=== PATIENT | female | born 1960 | race Caucasian/White ===

== ENCOUNTER 2016-09-23 14:06 | Emergency (ER) | payer OTHER ==
[~2016-09-23] VITALS: Ht 167.6 cm; Wt 81.6 kg
[2016-09-23] MEDS ORDERED: TOPI100T PO (14:17)
[2016-09-23] MEDS ORDERED: HYDROCODONE/APAP 5-325MG TABLET PO ONE (14:45)
[2016-09-23] MEDS ORDERED: HYDROCODONE/APAP 5-325MG TABLET ONE (14:52)
--- NOTE | 2016-09-23 15:28 | NUR ---
Patient discharged to home in stable conditon. Written and verbal after care instructions given. Patient verbalizes understanding of instructions.
[2016-09-23 15:29] VITALS: BP 112/60
== END 2016-09-23 15:30 | disposition home or self-care (01) ==
LOC: ER 14:06
DX: S22.39XA Fracture of one rib, unspecified side, initial encounter for closed fracture (principal); W01.0XXA Fall on same level from slipping, tripping and stumbling without subsequent striking against object, initial encounter; Y93.89 Activity, other specified; Y92.9 Unspecified place or not applicable; Y99.9 Unspecified external cause status
CPT/HCPCS: 71020; A4663